=== PATIENT | male | born 1975 | race Caucasian/White ===

== ENCOUNTER → 2021-06-26 09:46 | Outpatient (CLI) | payer BC, SELFPAY | PROVIDERS: Visit Provider Surgery | DX: Z01.812 Encounter for preprocedural laboratory examination (principal); Z20.822 Contact with and (suspected) exposure to COVID-19; U07.1 COVID-19; Z12.11 Encounter for screening for malignant neoplasm of colon | CPT/HCPCS: U0003 ==

== ENCOUNTER 2021-08-02 07:33 | Day surgery (SDC) | payer BC, SELFPAY ==
[2021-06-20 13:11] VITALS: BMI 38.4
[2021-07-31 12:47] VITALS: BMI 38.4
[2021-08-02 08:19] VITALS: BP 138/86; PULSE 60; RESP 18; TEMP 36.9; O2SAT 97
[2021-08-02 09:33] VITALS: O2SAT 97
--- NOTE | 2021-08-02 10:06 | P.PCN_ITS ---
- Procedure: Date: 08/02/21 Patient Date of :: 1975 Procedure Performed:: Colonoscopy with polypectomy Indications:: Screening Performing Provider:: Mickey Prado MD Referring Provider:: . Sedation:: Monitored anesthesia care Procedure:: After informed consent was obtained the patient was taken to the endoscopy suite. Sedation ensued after the patient was transferred to the left lateral decubitus position. Pulse, blood pressure, and oxygen saturation were monitored throughout the procedure. Digital rectal exam revealed no significant ab normality. The colonoscope was placed in position. The entire colon was evaluated. The colonoscope was carefully removed and the patient was transferred to recovery in stable condition. Please see findings and specimens below for detail. Findings:: Bowel preparation fair to moderate Significant lack of relaxation (particularly sigmoid) Sigmoid diverticulosis Internal hemorrhoidal cushions Complex adjacent cecal polyps Specimens:: Complex lobulated adjacent cecal polyps (snare) Recommendations:: Timing of repeat colonoscopy is pending pathology but will likely be between 2-3 years secondary to size/nature of cecal polyps and lack of relaxation. Complications:: No immediate Estimated blood obtained (mL): 1
[2021-08-02 10:08] VITALS: BP 125/78; PULSE 78; RESP 18; TEMP 36.1; O2SAT 94
[2021-08-02 10:18] VITALS: BP 99/59; PULSE 62; RESP 18; O2SAT 94
[2021-08-02 10:26] VITALS: BP 120/73; PULSE 60; RESP 18; O2SAT 96
[2021-08-02 10:35] VITALS: BP 124/78; PULSE 60; RESP 18; O2SAT 95
--- NOTE | 2021-08-02 12:49 | P.PN_ITS ---
[facility] Anesthesia Checklist - Patient Identification Patient Identification: Arm Band, Verbal (Name & ) - Structural Data Admitted From: Home Planned Operative Procedure/s: Colonoscopy Consent for Planned Operative Procedure(s) Verified: Yes Verified Documents: Surgical Consent - NPO Status Verified Time NPO: 04:00 - Chart Verification Results Verified: None - Cardiovascular Assessment Heart Sounds: S1 & S2 - Airway Assessment C-Spine Mobility Assessed: Yes TMJ Mobility Assessed: Yes Dentition: Good Dentition - Neurological Assessment Level of Consciousness: Awake, Alert, Appropriate - Anesthesia Plan Anesthesia Risk discussed: Yes ASA Class: II Anesthesia Type: General [facility] History Medical History: Denies:: Cancer, Diabetes Mellitus Type 1, Diabetes Mellitus Type 2, Internal Pacemaker, MRSA, Seizures *Have you ever received a pneumonia vaccine?: No *Have you received a flu vaccine this season?: Yes Other Medical History: Reports: Sinus Problems Anesthesia experience/problems:: no issues Laterality Cases: Right: Other Other Surgeries: Yes: No Previous Surgery. No: Pacemaker Amputation: No Fractures: No - *Social History Last grade of school completed: Some college Smoking Status: Never smoker Alcohol Intake: current Alcohol Intake Frequency:: holidays/special occasions only Substance Use Type: denies use *Occupational Status:: employed Housing: house Household Members: spouse *Travel in the last 8 weeks: None Family Hx:: Diabetes
== END 2021-08-02 10:45 | disposition home or self-care (01) ==
LOC: OUTP 07:35
PROVIDERS: PCP Family Medicine Adult Medicine; Visit Provider Surgery
PROC: 0DJD8ZZ Inspection of Lower Intestinal Tract, Via Natural or Artificial Opening Endoscopic (ICD-10-PCS; CPT 45385; principal; 2021-08-02 09:30)
DX: Z12.11 Encounter for screening for malignant neoplasm of colon (principal); K63.5 Polyp of colon; K62.89 Other specified diseases of anus and rectum; K57.30 Diverticulosis of large intestine without perforation or abscess without bleeding; K64.0 First degree hemorrhoids; Z83.3 Family history of diabetes mellitus
CPT/HCPCS: 45385; J0330

== ENCOUNTER → 2021-08-15 21:06 | Outpatient (CLI) | payer BC, SELFPAY | PROVIDERS: Visit Provider Nurse Practitioner Family | DX: R06.83 Snoring (principal); R40.0 Somnolence; Z68.41 Body mass index [BMI] 40.0-44.9, adult | CPT/HCPCS: G0399 ==

== ENCOUNTER 2024-03-12 09:56 | Outpatient (CLI) | payer BC, SELFPAY ==
[2024-03-12 12:27] LABS: Prostate Specific Ag Screen 1.5 ng/ml (0.0-4.0)
== END 2024-03-12 23:59 | disposition home or self-care (01) ==
LOC: LAB 09:59
PROVIDERS: PCP Nurse Practitioner Family; Visit Provider Urology
DX: Z12.5 Encounter for screening for malignant neoplasm of prostate (principal)
CPT/HCPCS: 36415; G0103

== ENCOUNTER 2025-03-03 07:40 | Day surgery (SDC) | payer BC, SELFPAY ==
[2025-03-01 16:14] VITALS: BMI 39.9
[2025-03-03] MEDS: LACTATED RINGERS 1000ML 1,000 ML 50 ML IV (08:24)
[2025-03-03 08:29] VITALS: BP 126/62; PULSE 75; RESP 18; TEMP 36.1; O2SAT 95
--- NOTE | 2025-03-03 09:05 | P.HP_ITS ---
History of Present Illness *Admission Date: 03/03/25 *Reason for visit:: Personal history of adenomatous colon polyps *History of present illness: Mr. Amador is a 49-year-old gentleman who is here for surveillance colonoscopy secondary to a personal history of adenomatous colon polyps. He did have a colonoscopy in July 2021 (Mickey Prado M.D.) and had 2 polyps (tubular adenomas x 2) removed.. The examination is deemed medically necessary for surveillance colonoscopy. The patient has been seen, interviewed and examined prior to the procedure by both myself and the anesthesia provider. [facility] Disclaimer: The information contained in this section may have been updated after the patient was seen, as this information can be updated by other users. Medical History (Updated 03/03/25 @ 09:06 by Loco Bernstein II, MD) History of arthroplasty of finger Colonoscopy planned History of arthroplasty of finger Allergies High cholesterol Family History Mother Diabetes Social History Smoking Status: Never smoker second hand exposure: No alcohol intake: never counseling given: Yes substance use type: denies use current occupational status: employed Travel in the last 8 weeks?: None household members: spouse housing: house current occupation: elementary school counselor current occupational exposures/hazards: No caffeine: Yes Have you lived/traveled outside [place] in past 30 days?: No Contact w/someone who lives/traveled outside [place] past 30 days?: No Exposure to someone with infectious disease in past 14 days?: No Do you have a fever (greater than 100.4 F or 38 C)?: No Have you tested positive for COVID-19?: No Exposed to someone with COVID-19 in past 14 days?: No Do you have a sore throat?: No Do you have a cough?: No Do you have any weakness?: No Do you have any diarrhea?: No Are you experiencing any unusual bleeding?: No Do you have any muscle aches/pain?: No Do you have any abdominal pain?: No Are you experiencing loss of taste or smell?: No Other Medical History Have you received the Flu Vaccine for this season: Yes Have you received the Pneumonia Vaccine: No Review of Systems Review of Systems Review of systems (narrative): Negative *Cardiovascular Comments: Negative *Gastrointestinal Comments: Negative *Genitourinary Comments: Negative *Musculoskeletal Comments: Negative *Neurologic Comments: Negative Meds Home Medications and Allergies Home Medications ?Medication ?Instructions ?Recorded ?Confirmed ?Type cetirizine 10 mg capsule (Zyrtec) 10 mg PO DAILY PRN allergies 03/05/22 03/01/25 History fluticasone propionate 50 50 mcg intranasal NEEDED PRN 03/08/24 03/01/25 History mcg/actuation nasal allergies spray,suspension rosuvastatin 20 mg tablet 20 mg PO DAILY 03/08/24 03/01/25 History empagliflozin 10 mg tablet 10 mg PO DAILY 03/01/25 03/01/25 History (Jardiance) metformin 500 mg tablet 500 mg PO DAILY 03/01/25 03/01/25 History New Prescriptions to Start Prescriptions: Allergies Allergy/AdvReac Type Severity Reaction Status Date / Time No Known Allergies Allergy Verified 03/03/25 08:27 Exam Data for Last 24 hours Vital signs and Labs for Last 24 Hours: Temp Pulse Resp BP Pulse Ox O2 Del Method 97.0 F L 75 18 126/62 95 Room Air 03/03/25 08:29 03/03/25 08:29 03/03/25 08:29 03/03/25 08:29 03/03/25 08:29 03/03/25 08:29 I & O for Last 24 hours: Intake & Output 02/28/25 03/01/25 03/02/25 03/03/25 23:59 23:59 23:59 23:59 Weight 270 lb *Routine HEENT Exam Head: Present normocephalic Eye: Present EOMI and PERRL ENT: Present mucous membranes moist *Routine Neck Exam Neck: Present supple *Routine Respiratory Exam Respiratory: Present CTA bilaterally *Routine Cardiovascular Exam Cardiovascular: Present RRR *Routine Abdominal Exam Abdominal: Present soft and normoactive bowel sounds; Absent tenderness *Routine Rectal Exam Rectal:: deferred *Routine Genitalia Exam Genitalia:: deferred *Routine Extremities Exam Extremities: Absent cyanosis, clubbing or edema *Routine Skin Exam Skin: Present warm; Absent rash *Routine Neurological Exam Neurological: Present alert and oriented X3 Assessment and Plan *Assessment and plan (1) Personal history of adenomatous and serrated colon polyps: Status: Acute Category: Medical Code(s): Z86.0101 - Personal history of adenomatous and serrated colon polyps Plan A/P: 1. Personal history of adenomatous colon polyps is the preprocedural diagnosis. The patient will be anesthetized/sedated using MAC sedation. The patient has been seen and examined. Cardiac and lung assessment prior to the examination is stable. Proceed with planned surveillance colonoscopy.
--- NOTE | 2025-03-03 09:06 | P.PNANES_ITS ---
[facility] Disclaimer: The information contained in this section may have been updated after the patient was seen, as this information can be updated by other users. 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 current occupational exposures/hazards: No caffeine: Yes Have you lived/traveled outside [place] in past 30 days?: No Contact w/someone who lives/traveled outside [place] past 30 days?: No Exposure to someone with infectious disease in past 14 days?: No Do you have a fever (greater than 100.4 F or 38 C)?: No Have you tested positive for COVID-19?: No Exposed to someone with COVID-19 in past 14 days?: No Do you have a sore throat?: No Do you have a cough?: No Do you have any weakness?: No Do you have any diarrhea?: No Are you experiencing any unusual bleeding?: No Do you have any muscle aches/pain?: No Do you have any abdominal pain?: No Are you experiencing loss of taste or smell?: No [facility] Anesthesia Checklist Patient Identification Patient Identification: Arm Band Structural Data Admitted From: Home Planned Operative Procedure/s: Colonoscopy Consent for Planned Operative Procedure(s) Verified: Yes Verified Documents: Surgical Consent and History and Physical NPO Status Verified Time NPO: 00:00 Additional verifications Anesthesia Reactions: No Airway Assessment Mallampati Score:: Class II C-Spine Mobility Assessed: Yes TMJ Mobility Assessed: Yes Dentition: Good Dentition Neurological Assessment Level of Consciousness: Awake, Alert and Appropriate Anesthesia Plan Anesthesia Risk discussed: Yes Anesthesia Plan: Verified ASA Class: II Anesthesia Type: MAC
[2025-03-03 09:12] VITALS: O2SAT 97
--- NOTE | 2025-03-03 09:17 | P.PCN_ITS ---
[facility] Procedure Note Date: 03/03/25 Time: 09:29 Procedure Note:: Colonoscopy Procedure Report: Colonoscopy Endoscopist: Loco Bernstein II, MD Referring physician: MICHAEL Connolly Date of Procedure: March 03, 2025 Equipment: Olympus 190 variable stiffness pediatric colonoscope Sedation: MAC sedation Indication: Mr. Amador is a 49-year-old gentleman who is here for follow-up surveillance colonoscopy. The patient did have a colonoscopy in July 2021 (Mickey Prado M.D.) and had 2 polyps (cecal tubular adenomas x 2) which were removed. He reports no abdominal pain, weight loss, change in his bowel habits or rectal bleeding. He reports no family history of colon cancer. Procedure: Prior to the procedure, a history and physical exam was performed, and patient's medications and allergies were reviewed. The risks, benefits and alternatives of the sedation and procedure were discussed with the patient. All questions were answered and informed consent was obtained. The patient was brought to the procedure room. Patient identification and proposed procedure were verified by the physician and the nurse. The patient was placed in a left lateral decubitus position and the scope was passed under direct vision. Throughout the procedure, the patient's blood pressure, pulse, and oxygen saturations were monitored continuously. The colonoscopy was accomplished without difficulty. The patient tolerated the procedure well. Findings: On digital rectal examination there was normal rectal tone. There were no external hemorrhoids. The prostate was 2-3+, smooth, symmetric without nodules. The colonoscope was introduced through the anal canal to the rectum and advanced to the cecum. The ileocecal valve and appendiceal orifice were identified. The scope was advanced a short distance into the ileum which appeared grossly normal. The scope was then withdrawn into the colon. The cecum, ascending and transverse colon and mucosa were grossly normal. There were scattered diverticuli throughout the descending and sigmoid colon (LEFT colon). The rectum itself was normal. Upon retroflexion within the rectum there were grade 2 internal hemorrhoids. The preparation was fair throughout with Ludlow Preparation Score of 7 out of 9. The cecal time was 10 minutes. Impression: 1. Left-sided diverticulosis 2. Grade 2 internal hemorrhoids Plan: The patient will not require surveillance colonoscopy again for 10 years by ACS guidelines. I would encourage psyllium bulking fiber supplementation on a maintenance basis.
[2025-03-03 09:33] VITALS: BP 124/72; PULSE 71; RESP 18; TEMP 36.4; O2SAT 94
[2025-03-03 09:43] VITALS: BP 120/72; PULSE 74; RESP 18; O2SAT 95
[2025-03-03 09:53] VITALS: BP 139/56; PULSE 72; RESP 18; O2SAT 96
[2025-03-03 10:03] VITALS: BP 128/78; PULSE 74; RESP 18; TEMP 36.6; O2SAT 98
[2025-03-04 12:26] LABS: POC Glucose,Bedside 94 (70-110)
== END 2025-03-03 11:10 | disposition home or self-care (01) ==
PROVIDERS: PCP Nurse Practitioner Family; Visit Provider Internal Medicine Gastroenterology
PROC: 0DJD8ZZ Inspection of Lower Intestinal Tract, Via Natural or Artificial Opening Endoscopic (ICD-10-PCS; CPT 45378; principal; 2025-03-03 09:30)
DX: Z12.11 Encounter for screening for malignant neoplasm of colon (principal); Z86.0101 Personal history of adenomatous and serrated colon polyps; K57.30 Diverticulosis of large intestine without perforation or abscess without bleeding; K64.1 Second degree hemorrhoids
CPT/HCPCS: 45378; 82962; J7120